=== PATIENT | female | born 1985 | race African-American/Black ===

== ENCOUNTER → 2016-12-22 | Outpatient (CLI) | payer MEDICAID ==
[2015-01-12 14:33] VITALS: BP 136/93
[~2016-12-22] MED LIST: CIPR500T94 PO; FLUC150T PO
[2016-12-22 09:33] LABS: BASO # 0.1 x10^3/uL (0.0-0.2); BASO % 1 % (0-3); EOS # 0.2 x10^3/uL (0.0-0.7); EOS % 3 % (0-3); HEMATOCRIT 41.6 % (36.0-47.0); HEMOGLOBIN 14.1 g/dL (12.0-15.5); LYMPH # 1.6 x10^3/uL (1.0-4.8); LYMPH % 21 % (24-48); MEAN CORPUSCULAR HEMOGLOBIN 31 pg (25-35); MEAN CORPUSCULAR HGB CONC 34 g/dL (31-37); MEAN CORPUSCULAR VOLUME 93 fL (79-100); MONO # 0.5 x10^3/uL (0.0-1.1); MONO % 6 % (0-9); NEUT # 5.4 x10^3uL (1.8-7.7); NEUT % 70 % (31-73); PLATELET COUNT 202 x10^3/uL (140-400); RED CELL DISTRIBUTION WIDTH 13.7 % (11.5-14.5); WHITE BLOOD COUNT 7.6 x10^3/uL (4.0-11.0)
[2016-12-22 10:12] LABS: ALBUMIN 3.8 g/dL (3.4-5.0); ALBUMIN/GLOBULIN RATIO 1.1 (1.0-1.7); CALCIUM 9.2 mg/dL (8.5-10.1); CREATININE 0.8 mg/dL (0.6-1.0); POTASSIUM 4.1 mmol/L (3.5-5.1); TOTAL BILIRUBIN 0.4 mg/dL (0.2-1.0); TOTAL PROTEIN 7.4 g/dL (6.4-8.2)
[2016-12-22 10:57] LABS: SEDIMENTATION RATE 2 (0-25)
[2016-12-22 12:10] LABS: FREE T4 0.96 ng/dL (0.76-1.46); THYROID STIM HORMONE (TSH) 1.072 uIU/mL (0.358-3.740)
== END | disposition home or self-care (01) ==
LOC: LAB 08:58
PROVIDERS: ATTEND Psychiatry & Neurology Neurology
DX: E66.9 Obesity, unspecified (principal); E78.5 Hyperlipidemia, unspecified; G64 Other disorders of peripheral nervous system; E51.11 Dry beriberi; E55.9 Vitamin D deficiency, unspecified; E07.9 Disorder of thyroid, unspecified
CPT/HCPCS: 36415; 80053; 80061; 82306; 82607; 82746; 84439; 84443; 85027; 85651